=== PATIENT | male | born 1945 | race Caucasian/White ===

== ENCOUNTER → 2017-03-17 | Outpatient (CLI) | payer OTHER, MEDICARE ==
[~2017-03-17] VITALS: Ht 193 cm; Wt 108.4 kg
[~2017-03-17] MED LIST: AMBIEN5 MG PO; ASPIR-LOW81 MG PO; ATORVASTATIN CA40 MG PO; Ambien PO; DAILY VITE1 EAC1 PO; FISH OIL 1,0001 EA10 PO; FLONASE16 G1 BOTH NARES; Feosol PO; Fish Oil PO; Flexeril PO; Flonase BOTH NARES; GLUCOSAMINE &1 EAC1 PO; LISINOPRIL10 MG PO; MOTRIN IB200 MG PO; Motrin PO; Relafen PO; VITAMIN B12 100MCG PO; Vicodin,Norco 5/325 PO; Zestril,Prinivil PO
== END | disposition home or self-care (01) ==
LOC: AMB 07:30
DX: K52.9 Noninfective gastroenteritis and colitis, unspecified (principal); K63.0 Abscess of intestine; E78.5 Hyperlipidemia, unspecified; I10 Essential (primary) hypertension; Z80.0 Family history of malignant neoplasm of digestive organs; Z86.73 Personal history of transient ischemic attack (TIA), and cerebral infarction without residual deficits; Z87.891 Personal history of nicotine dependence; Z79.82 Long term (current) use of aspirin
CPT/HCPCS: 87493; 88305; 93005